=== PATIENT | male | born 1975 | race Caucasian/White ===

== ENCOUNTER 2019-08-14 18:32 | Emergency (ER) | payer MEDICAID ==
[~2019-08-14] VITALS: Ht 182.9 cm; Wt 81.0 kg
[2019-08-14] MEDS ORDERED: CEPH500C5 PO (20:16)
[2019-08-14 20:32] VITALS: BP 117/78
== END 2019-08-14 20:33 | disposition home or self-care (01) ==
LOC: ER 18:33
DX: L03.115 Cellulitis of right lower limb (principal); Z79.899 Other long term (current) drug therapy
CPT/HCPCS: 10160; 99284

== ENCOUNTER 2019-09-05 07:02 | Emergency (ER) | payer MEDICAID ==
[~2019-09-05] VITALS: Ht 185.4 cm; Wt 90.0 kg
[~2019-09-05 07:02] MED LIST: CEPH500C5 PO
[2019-09-05 07:05] VITALS: BP 159/71
[2019-09-05] MEDS ORDERED: clindamycin 150mg capsule PO ONE (07:35)
[2019-09-05] MEDS ORDERED: CLIN150C8 PO (07:36)
== END 2019-09-05 08:01 | disposition home or self-care (01) ==
LOC: ER 07:03
DX: K08.89 Other specified disorders of teeth and supporting structures (principal); K02.9 Dental caries, unspecified; Z79.899 Other long term (current) drug therapy
CPT/HCPCS: 99283